=== PATIENT | female | born 1985 | race Caucasian/White ===

== ENCOUNTER 2017-07-25 18:22 | Emergency (ER) | payer BC, OTHER ==
--- NOTE | 2017-07-25 18:42 | EDM.PDOC ---
ED HPI GENERAL MEDICAL PROBLEM - General Chief Complaint: Upper Extremity Injury/Pain Stated Complaint: smashed middle right finger Time Seen by Provider: 07/25/17 18:35 Source of Information: Reports: Patient, Old Records ([facility] chart/EMR) History Limitations: Reports: No Limitations - History of Present Illness INITIAL COMMENTS - FREE TEXT/NARRATIVE: Patient was brought to the emergency room via transport vehicle from [facility] for evaluation of a Workmen's Compensation injury, which occurred at about 17:30 hours this afternoon. Patient caught the third finger of her right hand between a part and the table resulting in a contusion. No medications or treatment taken after the above injury. She has not injured this digit in the past. The patient is left-handed. The patient denies any chest pain/pressure, heart flutter, dizziness, orthostasis, orthopnea, diaphoresis, paresthesias, recent decreased exercise tolerance, or any other anginal-type symptoms. No recent history of abdominal pain, heartburn, nausea, diarrhea, melena, gross hematochezia, or any food intolerance, including fatty foods, etc.. The patient also denies any recent fever, wheezing, dyspnea, etc., although she has had some mild URI symptoms and mostly clear productive cough during the last week with symptoms improving at this time. No history of paresthesias, neurological deficits, or other complaints or injuries Onset: Today, Sudden Onset Date: 07/25/17 Onset Time: 17:30 Duration: Constant Location: Reports: Upper Extremity, Right. Denies: Head, Face, Neck, Chest, Back, Pelvis, Upper Extremity, Left, Generalized, Radiates to Quality: Reports: Ache, Same as Previous Episode, Throbbing Severity: Mild Improves with: Reports: None Worsens with: Reports: None Context: Reports: Trauma (As above) Associated Symptoms: Reports: Cough (Previous as above), cough w sputum (As above). Denies: Confusion, Chest Pain, Diaphoresis, Fever/Chills, Headaches, Loss of Appetite, Malaise, Nausea/Vomiting, Rash, Shortness of Breath, Weakness Treatments PROFESSIONAL SKATER: Reports: Other (see below) (None) Right 3-Middle finger Pain Score (Numeric/FACES): 4 - Related Data Allergies Allergy/AdvReac Type Severity Reaction Status Date / Time No Known Allergies Allergy Verified 07/25/17 18:24 Home Meds: Home Meds . [No Known Home Meds] 07/25/17 [History] Past Medical History HEENT History: Reports: None, Impaired Vision. Denies: Allergic Rhinitis, Hard of Hearing, Otitis Media, Retinal Detachment Other HEENT History: She wears glasses Cardiovascular History: Reports: High Cholesterol, Syncope, Other (See Below). Denies: Afib, Aneurysm, Arrhythmia, Blood Clots/VTE/DVT, CAD, Heart Murmur, Hypertension Other Cardiovascular History: Hyperlipidemia currently treated with diet; syncopal episode in 2006 with negative workup - Past Imaging History Past Imaging History: Reports: CAT Scan (CT of the head in 2006 for workup of syncopal episode), Ultrasound (Complete abdominal ultrasound on 10/25/15, OB ultrasound on 02/17/14, right breast ultrasound on 08/25/13) Social & Family History - Tobacco Use Smoking Status *Q: Never Smoker Tobacco Use Within Last Twelve Months: No Smoking Cessation Information Provided To Patient: No Second Hand Smoke Exposure: No Second Hand Smoke Education Provided: No - Living Situation & Occupation Occupation: 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 ED EXAM, GENERAL - Physical Exam Exam: See Below Exam Limited By: No Limitations General Appearance: Alert, WD/WN, No Apparent Distress Head: Atraumatic, Normocephalic Neck: Normal Inspection, Supple, Non-Tender, Full Range of Motion. No: Lymphadenopathy (L), Lymphadenopathy (R), Thyromegaly Respiratory/Chest: No Respiratory Distress, Lungs Clear, Normal Breath Sounds, No Accessory Muscle Use, Chest Non-Tender. No: Pleural Rub, Retractions Cardiovascular: Normal Peripheral Pulses, Regular Rate, Rhythm, No Edema, No Gallop, No JVD, No Murmur, No Rub. No: Gallop/S3, Gallop/S4, Friction Rub Peripheral Pulses: 2+: Radial (L), Radial (R) GI/Abdominal: Normal Bowel Sounds, Soft, Non-Tender, No Organomegaly, No Distention, No Abnormal Bruit, No Mass (Female) Exam: Deferred Rectal (Female) Exam: Deferred Back Exam: Normal Inspection, Full Range of Motion. No: CVA Tenderness (L), CVA Tenderness (R), Muscle Spasm Extremities: Normal Range of Motion, No Pedal Edema, Normal Capillary Refill ( Fingernail khmer), Other (Mild palpation pain over the distal phalanx of digit #3 of the right hand with small blister and mild swelling over the palmar surface at the same location; no laceration, foreign body, crepitation, joint deformity, etc.). No: Pedal Edema, Joint Swelling, Magdalena's Sign Neurological: Alert, Oriented, CN II-XII Intact, Normal Cognition, Normal Gait, No Motor/Sensory Deficits Psychiatric: Normal Affect, Normal Mood Skin Exam: Ecchymosis (Mild in the area of injury as above). No: Diaphoretic, Petechiae, Wound/Incision Lymphatic: No Adenopathy Course - Vital Signs Last Recorded V/S: Last Vital Signs Temp 37.6 C 07/25/17 18:41 Pulse 62 07/25/17 18:41 Resp 14 07/25/17 18:41 BP 116/77 07/25/17 18:41 Pulse Ox 97 07/25/17 18:41 Vital Signs - 24 hr 07/25/17 18:41 Temperature [ 37.6 C Temporal] Pulse, 62 Peripheral [ Left Pulse Oximetry] Respiratory 14 Rate Blood Pressure 116/77 [Left Upper Arm ] O2 Sat by Pulse 97 Oximetry - Orders/Labs/Meds Orders: Active Orders 24 hr Category Date Time Status Fingers Third Digit Rt F7 [CR] Stat Exams 07/25/17 18:43 Ordered Durable Medical Equipment for Discharge [DME for Oth 07/25/17 19:02 Ordered Discharge] [COMM] Routine Obtain Past Medical Record [OM.PC] Routine Oth 07/25/17 18:42 Active Labs: None Meds: None - Radiology Interpretation Free Text/Narrative:: X-rays of digit #3 of the right hand, complete, shows no evidence of fracture, dislocation, foreign body, etc. Departure - Departure Time of Disposition: 19:15 Disposition: Home, Self-Care 01 Condition: Good Clinical Impression: Contusion Qualifiers: Encounter type: initial encounter Contusion area: finger Finger: middle finger Laterality: right URI (upper respiratory infection) Qualifiers: URI type: unspecified viral URI Qualified Code(s): J06.9 - Acute upper respiratory infection, unspecified; B97.89 - Other viral agents as the cause of diseases classified elsewhere; B97.89 - Other viral agents as the cause of diseases classified elsewhere - Discharge Information Instructions: Contusion, [id number] Referrals: Echo Andersen, [employer] [facility] [Primary Care Provider] - Forms: ED Department Discharge Additional Instructions: 1. Follow up with your regular provider in 10-14 days as needed, if symptoms persist. 2. Tylenol 650 mg by mouth every 4 hours and/or OTC ibuprofen 2-3 tabs by mouth every 6 hours with food as directed./needed. 3. BenGay or equivalent, heating pad, and/or ice packs as directed. 4. Work excuse- See Form 5. Wear finger splint as needed/as directed - Problem List & Annotations (1) Contusion SNOMED Code(s): 777729639 Code(s): T14.8XXA - OTHER INJURY OF UNSPECIFIED BODY REGION, INITIAL ENCOUNTER Status: Acute Priority: High Current Visit: Yes Onset Date: Annotation/Comment:: Minor contusion of her third finger of her right hand as above. Symptomatic relief as per discharge instructions. The patient wants to go back to work today with no significant work restrictions needed. She is left-handed. The patient is requesting a finger splint and also wishes to put this on on her own. This will be used when necessary. Workmen's Compensation and work excuse/[employer] forms were completed. Qualifiers: Encounter type: initial encounter Contusion area: finger Finger: middle finger Damage to nail status: without damage Laterality: right Qualified Code(s): S60.031A - Contusion of right middle finger without damage to nail, initial encounter (2) URI (upper respiratory infection) SNOMED Code(s): 92216106 Code(s): J06.9 - ACUTE UPPER RESPIRATORY INFECTION, UNSPECIFIED Status: Acute Priority: Medium Current Visit: Yes Onset Date: ~07/18/17 Annotation/Comment:: Mild URI with possible mild secondary bronchitis with symptoms improving at this time by her history. Mild fever today with no direct indication of antibiotic therapy, etc. Qualifiers: URI type: unspecified viral URI Qualified Code(s): J06.9 - Acute upper respiratory infection, unspecified; B97.89 - Other viral agents as the cause of diseases classified elsewhere; B97.89 - Other viral agents as the cause of diseases classified elsewhere - Problem List Review Problem List Initiated/Reviewed/Updated: Yes - My Orders Last 24 Hours: My Active Orders 07/25/17 18:42 Obtain Past Medical Record [OM.PC] Routine 07/25/17 18:43 Fingers Third Digit Rt F7 [CR] Stat 07/25/17 19:02 Durable Medical Equipment for Discharge [DME for Discharge] [COMM] Routine - Assessment/Plan Last 24 Hours: My Active Orders 07/25/17 18:42 Obtain Past Medical Record [OM.PC] Routine 07/25/17 18:43 Fingers Third Digit Rt F7 [CR] Stat 07/25/17 19:02 Durable Medical Equipment for Discharge [DME for Discharge] [COMM] Routine Assessment:: As above Plan: As above. Extensive precautions were given to the patient, who is in agreement with the treatment plan. See Patient Instructions for further treatment and plan.
== END 2017-07-25 19:10 | disposition home or self-care (01) ==
LOC: LL.ED 18:22
DX: S60.031A Contusion of right middle finger without damage to nail, initial encounter (principal); J06.9 Acute upper respiratory infection, unspecified; W23.1XXA Caught, crushed, jammed, or pinched between stationary objects, initial encounter
CPT/HCPCS: 73140; 99284; L3999